=== PATIENT | female | born 1965 ===

== ENCOUNTER 2020-04-19 16:53 | Emergency (ER) | payer OTHER, BC ==
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
[2020-04-19] MEDS ORDERED: Iopamidol 755 Mg/ML 100 ML Bottle IVPUSH ONE (17:23)
[2020-04-19 17:29] LABS: CHLORIDE,CL 105 mmol/L (98-107); SODIUM,NA 143 mmol/L (136-145)
[2020-04-19] MEDS ORDERED: Ketorolac 30 MG/ML SDV IVPUSH ONE (18:47)
== END 2020-04-19 19:46 | disposition home or self-care (01) ==
LOC: LL.ED 16:53
DX: S22.41XA Multiple fractures of ribs, right side, initial encounter for closed fracture (principal); S80.01XA Contusion of right knee, initial encounter; V59.40XA Driver of pick-up truck or van injured in collision with unspecified motor vehicles in traffic accident, initial encounter
CPT/HCPCS: 36415; 71275; 80053; 85025; 85610; 96374; 99284; J1885; Q9967; 99283